=== PATIENT | female | born 2000 | race African-American/Black ===

== ENCOUNTER 2022-06-14 23:37 | Emergency (ER) | payer SELFPAY ==
--- NOTE | ~2022-06-14 | CT_ITS ---
EXAMINATION: CT abdomen pelvis w con DATE: 06/15/2022 02:07 INDICATION: Epigastric abdominal pain. Nausea and vomiting. TECHNIQUE: Computed tomography (CT) of the abdomen and pelvis was performed with 100 mL Omnipaque 350 intravenous contrast. Automated exposure control and iterative reconstruction technique were employe d. The dose-length product was 312.42 mGy-cm. COMPARISON: None. FINDINGS: The visualized portions of the lung bases are clear without pneumonia or pleural effusion. The heart size is normal. No pericardial effusion. The liver, gallbladder, spleen, pancreas, adrenal glands, and kidneys are normal. There is a 3.5 cm cyst in left ovary. The appendix is normal. There a re no dilated loops of bowel. There are no pathologically enlarged lymph nodes. There is physiologic fluid in the pelvis. There is mild lumbar spondylosis. IMPRESSION: 1. 3.5 cm cyst in left ovary, likely a follicular cyst. Reviewed, dictated and finalized at location A. MER BLOCKER
[2022-06-14 23:38] VITALS: BP 134/79; PULSE 87; RESP 14; TEMP 37; O2SAT 97
[2022-06-14 23:42] VITALS: PULSE 77; RESP 15; O2SAT 100
[2022-06-14 23:45] VITALS: PULSE 69; RESP 15; O2SAT 100
[2022-06-15 00:01] VITALS: BP 137/91; PULSE 78; RESP 27; O2SAT 100
[2022-06-15 00:05] LABS: Basophils Absolute Auto 0.1 K/mm3 (0.0-0.1); Basophils Percent Auto 0.5 % (0.2-1.2); Eosinophils Absolute Auto 0.1 K/mm3 (0-0.3); Eosinophils Percent Auto 0.3 % (0-4.4); Hemoglobin 12.3 g/dL (12.0-15.0); Immature Granulocyte Absolute 0.08 K/mm3 (0.00-0.031); Immature Granulocyte Percent A 0.4 % (0-0.5); Lymphocytes Percent Auto 16.4 % (18.3-44.2); Mean Corpuscular HGB Conc 32.4 g/dl (32-36); Mean Corpuscular Hemoglobin 25.2 pg (26-34); Mean Corpuscular Volume 77.7 fl (80-100); Mean Platelet Volume 10.6 fl (7.4-10.4); Monocytes Absolute Auto 1.6 K/mm3 (0.1-0.6); Monocytes Percent Auto 8.7 % (2.6-8.5); Neutrophils Absolute Auto 13.5 K/mm3 (1.3-6.7); Neutrophils Percent Auto 73.7 % (45.5-73.1); Platelet Count Result 397 k/mm3 (150-375); Red Blood Count 4.89 M/mm3 (4.2-5.4); Red Cell Distribution Width 14.2 % (11.5-14.5); White Blood Count 18.3 K/mm3 (4.5-10.0)
[2022-06-15 00:15] VITALS: PULSE 67; RESP 16; O2SAT 100
[2022-06-15 00:29] LABS: Alanine Aminotransferase 21 U/L (6-35); Albumin Level 4.8 g/dL (3.5-5.1); Alkaline Phosphatase 64 U/L (38-126); Anion Gap 13 mmol/L (8-16); Aspartate Amino Transferase 39 U/L (14-36); Bilirubin,Total 0.6 mg/dL (0.2-1.3); Blood Urea Nitrogen 9 mg/dL (7-17); Calcium 9.3 mg/dL (8.4-10.2); Carbon Dioxide 22 mmol/L (22-30); Chloride 103 mmol/L (98-107); Estimated CRCL calculation 117 ml/min; Estimated Glomerular Filt Rate > 60; Glucose 166 mg/dL (65-110); Lipase 49 U/L (23-300); Potassium 3.9 mmol/L (3.4-5.0); Sodium 138 mmol/L (137-145)
--- NOTE | 2022-06-15 00:45 | ED.NAVMDI ---
HPI - Nausea/Vomiting/Diarrhea General Chief complaint: Nausea/Vomiting/Diarrhea Stated complaint: n/v Time Seen by Provider: 06/14/22 23:49 Source: patient Mode of arrival: EMS Limitations: no limitations History of Present Illness HPI Narrative: Patient is a 21-year-old female who presents the ED via EMS with report of N/V. Patient reports she began feeling unwell around 10 PM tonight after getting home from work. She developed nausea and vomiting and reported having numerous episodes of emesis. She also reported having pain in her epigastric region at that time. She was unable to keep anything down, EMS was called. She was given 4 mg Zofran in route with relief of nausea. Patient reports having similar episodes recently, 2 within the last 2 weeks. She denies any fever, diarrhea, constipation, cough or cold symptoms, urinary sx's. Patient does smoke marijuana. Related Data Allergies Allergy/AdvReac Type Severity Reaction Status Date / Time No Known Allergies Allergy Verified 06/14/22 23:42 Review of Systems Review of Systems: CONSTITUTIONAL: Denies fever, chills, or sweats. ENT: Denies rhinorrhea, congestion, sore throat. CARDIOVASCULAR: Denies chest pain. RESPIRATORY: Denies cough or dyspnea. GASTROINTESTINAL: Reports epigastric abdominal pain, nausea, vomiting. Denies constipation or diarrhea. GENITOURINARY: Denies dysuria or hematuria. All systems reviewed & are unremarkable except as noted in HPI and below PMFSH Past Medical History Medical History (Updated 06/15/22 @ 02:53 by Meri Parra PA-C) No pertinent past medical history Surgical History Surgical History (Updated 06/15/22 @ 00:45 by Meri Parra PA-C) No pertinent past surgical history Social History Social History (Updated 06/15/22 @ 00:56 by Meri Parra PA-C) Smoking status: Never smoker Alcohol intake: former Substance use: current Substance use type: marijuana Exam Narrative: GENERAL: Well appearing, well-nourished, non-toxic, in no acute distress. HEAD: Normocephalic, atraumatic. NECK: Supple. No adenopathy, no masses. RESPIRATORY: Airway patent, respirations nonlabored. Clear to auscultation bilaterally, no rales, rhonchi, wheezing. CARDIOVASCULAR: Regular rate and rhythm without murmurs, rubs, or gallops. Peripheral pulses 2+ and equal bilaterally. ABDOMINAL: Soft, mild tenderness throughout upper abdomen, nondistended, no hepatosplenomegaly. Normoactive BS. MUSCULOSKELETAL: Moves all extremities. Strength/ROM intact without gross deformities. SKIN: Warm, dry, normal color. No rashes. NEURO: A&O X3. Speech clear. Cranial nerves II-XII grossly intact. Steady gait. No ataxic movements. PSYCHIATRIC: Appropriate mood and affect. Normal interaction. Course Vital Signs Vital signs: Vital Signs Temperature 98.6 F 06/14/22 23:38 Respiratory Rate 14 06/14/22 23:38 Temperature 98.3 F 06/15/22 01:49 Pulse Rate 85 06/15/22 01:49 Respiratory Rate 19 06/15/22 01:49 Blood Pressure 131/86 06/15/22 01:49 Pulse Oximetry 100 06/15/22 01:49 MDM - Nausea/Vomiting/Diarrhea MDM Narrative Medical decision making narrative: Patient presented to ED with report of nausea and vomiting, history of recent similar episodes. Vitals stable upon arrival. Patient nontoxic-appearing. Afebrile. Mild tenderness on exam to epigastric region. Labs revealed leukocytosis of 18.3, though patient did report several episodes of emesis prior to arrival. CMP unremarkable. Lipase within normal limits. UA with signs of dehydration with 4+ ketones and blood, patient on cycle, no signs of infection. CT scan of abdomen pelvis obtained and unremarkable, showing enteritis but otherwise no acute findings. Does show L ovarian cyst, recommending US, patient w/o LLQ tenderness on exam, discussed obtaining US as outpatient with OBGYN. Patient feeling better with supportive therapy in the ED. Given 2L fluid. S
[2022-06-15] MEDS: SODIUM CHLORIDE 0.9% IV 1,000 ML 999 ML IV CONT ×2 (01:20→02:38)
[2022-06-15 01:23] LABS: Add Urine Microscopic? YES; Appearance Urine Clear (Clear); Bilirubin Urine 1+ (Negative); Blood Urine 3+ (Negative); Color Urine Yellow (Yellow); Glucose Urine UA Negative (Negative); Ketones Urine 4+ mg/dL (Negative); Leukocyte Esterase Ur Negative LEU/UL (Negative); Nitrate Urine Negative (Negative); Protein Urine 2+ mg/dL (Negative); Specific Grav Ur >= 1.030 (1.001-1.035)
[2022-06-15 01:49] VITALS: BP 131/86; PULSE 85; RESP 19; TEMP 36.8; O2SAT 100
[2022-06-15 02:06] LABS: Bacteria Urine Trace /hpf; Mucus Urine Few /lpf; RBC Urine >75 /hpf (0-2); Squamous Epithelial Cell Urine Occasional /hpf (Few); WBC Urine 21-30 /hpf
[2022-06-15 02:25] VITALS: PULSE 89; RESP 18; O2SAT 100
[2022-06-15 02:40] VITALS: BP 144/99; PULSE 104; RESP 14; O2SAT 100
== END 2022-06-15 04:00 | disposition home or self-care (01) ==
PROVIDERS: Emergency Medicine; Emergency Provider Physician Assistant
DX: K52.9 Noninfective gastroenteritis and colitis, unspecified (principal); N83.202 Unspecified ovarian cyst, left side
CPT/HCPCS: 36415; 74177; 80053; 81001; 81025; 83690; 85025; 87077; 87086; 87088; 96360; 96361; 99284; J7030; Q9967